=== PATIENT | female | born 1955 | race Caucasian/White ===

== ENCOUNTER 2019-01-01 17:04 | Inpatient (IN) | payer MEDICAID ==
[~2019-01-01] VITALS: Ht 160 cm; Wt 59.6 kg
[2019-01-01] MEDS ORDERED: SODIUM CHLORIDE 0.9% 1,000 ML IV ONE (18:43)
[2019-01-01] MEDS ORDERED: MORPHINE SULFATE 4 MG/ML SYR/VIAL IV ONE (18:45)
[2019-01-01] MEDS ORDERED: ONDANSETRON HCL 4 MG/2 ML VIAL IV ONE (18:45)
[2019-01-01 19:35] LABS: Basophils # (auto) 0 uL; Eosinophils # (auto) 0.3 uL; Eosinophils % (auto) 3.9 % (0.0-7.0); Lymphocytes # (auto) 2.1 uL; Monocytes # (auto) 0.7 uL
[2019-01-01 19:37] LABS: Basophils % (auto) 0.2 % (0.0-2.0); Hematocrit 43.2 % (36.0-46.0); Hemoglobin 14.8 g/dL (12.2-16.2); Lymphocytes % (auto) 31.7 % (10.0-50.0); Mean Corpuscular Hgb Conc. 34.4 g/dL (32.0-36.0); Mean Corpuscular Volume 98.9 fL (80.0-100.0); Monocytes % (auto) 9.9 % (0.0-12.0); Neutrophils # (auto) 3.6 uL; Neutrophils % (auto) 54.3 % (37.0-80.0); Nucleated Red Blood Cells % 0.1 %; Platelet Count (auto) 201 10^3/uL (140-450); Red Blood Cells 4.36 10^6/uL (4.0-5.20); Red Cell Distribution Width 14.6 % (11.8-14.3); White Blood Cell 6.7 10^3/uL (4.4-10.8)
[2019-01-01] MEDS ORDERED: PIPERACILLIN-TAZOB 3.375GM 100 ML IV ONE (19:45)
[2019-01-01 19:53] LABS: INR < 0.93 (0.9-1.15); Partial Thromboplastin Time 27.1 sec (23.64-32.05)
[2019-01-01 19:54] LABS: Alanine Aminotransferase 29 U/L (13-56); Albumin 4.3 g/dL (3.4-5.0); Amylase 76 U/L (25-115); Anion Gap 7 (5-15); Aspartate Aminotransferase 25 U/L (15-37); BUN/Creatinine Ratio 11.5; Blood Urea Nitrogen 14 mg/dL (7-18); Carbon Dioxide 26 mmol/L (21-32); Chloride 107 mmol/L (98-107); GFR African American 58 mL/min; GFR Non-African American 48 mL/min; Glucose 89 mg/dL (74-106); Lipase 137 U/L (73-393); Sodium 140 mmol/L (136-145)
[2019-01-01 19:59] LABS: Alkaline Phosphatase 76 U/L (45-117); Bilirubin, Total 0.4 mg/dL (0.2-1.0); Total Protein 7.4 g/dL (6.4-8.2)
[2019-01-01 20:09] LABS: Urine WBC None Seen /hpf (0 - 5)
[2019-01-01 20:30] LABS: Urine Bacteria NONE SEEN /hpf (None Seen); Urine Blood Negative /uL (Negative); Urine Specific Gravity 1.011 (1.001-1.035)
[2019-01-01] MEDS ORDERED: ACETAMINOPHEN 325 MG TAB PO PRN (21:15)
[2019-01-01] MEDS: metroNIDAZOLE 500MG/100ML 100 ML IV SCH (21:48)
[2019-01-01] MEDS: FAMOTIDINE 20 MG TAB PO SCH (22:05)
[2019-01-01] MEDS ORDERED: cloNIDine HCL 0.1 MG TAB PO PRN (22:45)
[2019-01-01 22:55] VITALS: BP 154/68
--- NOTE | 2019-01-01 22:55 | NUR ---
PATIENT ARRIVED TO UNIT VIA WHEELCHAIR. HER WAS BEDSIDE. SHE IS A0X4. SHE IS SATTING ABOVE 92% ON ROOM AIR BUT ASKED FOR OXYGEN BECAUSE SHE FEELS SHORT OF BREATH. SHE WAS PLACED ON 2L NC. SHE WAS ABLE TO AMBULATE FROM THE WHEELCHAIR TO THE BED WITHOUT ASSISTANCE. SHE COMPLAINS OF ABDOMINAL PAIN GLOBALLY BUT THE RIGHT LOWER QUADRANT PAIN RADIATED TO THE BACK. SIDE RAILS UP X2. BED IS LOCKED IN LOWEST POSITION. CALL LIGHT IS WITHIN REACH. WILL CONTINUE TO MONITOR.
[2019-01-01] MEDS: HYDROcodone-ACET 5/325MG TAB PO PRN (23:34)
[2019-01-01] MEDS ORDERED: SPIR25TA8 PO (23:43)
[2019-01-01] MEDS ORDERED: METO25TA5 PO (23:43)
[2019-01-01] MEDS ORDERED: LOSA-69 PO (23:43)
[2019-01-01] MEDS ORDERED: ATOR80TA PO (23:43)
[2019-01-01] MEDS ORDERED: ASPI-404 PO (23:43)
[2019-01-01] MEDS ORDERED: PRAS10TA6 PO (23:43)
[2019-01-02 05:00] VITALS: BP 156/95
[2019-01-02 06:10] LABS: Basophils # (auto) 0.1 uL; Basophils % (auto) 1.9 % (0.0-2.0); Eosinophils # (auto) 0.3 uL; Eosinophils % (auto) 4.7 % (0.0-7.0); Hematocrit 39.8 % (36.0-46.0); Hemoglobin 13.9 g/dL (12.2-16.2); Lymphocytes # (auto) 2.2 uL; Lymphocytes % (auto) 39.6 % (10.0-50.0); Mean Corpuscular Hemoglobin 34.6 pg (28.0-32.0); Mean Corpuscular Hgb Conc. 34.8 g/dL (32.0-36.0); Mean Corpuscular Volume 99.2 fL (80.0-100.0); Monocytes # (auto) 0.6 uL; Monocytes % (auto) 10.3 % (0.0-12.0); Neutrophils # (auto) 2.4 uL; Neutrophils % (auto) 43.5 % (37.0-80.0); Nucleated Red Blood Cells % 0.1 %; Platelet Count (auto) 164 10^3/uL (140-450); Red Blood Cells 4.01 10^6/uL (4.0-5.20); Red Cell Distribution Width 14.6 % (11.8-14.3); White Blood Cell 5.6 10^3/uL (4.4-10.8)
[2019-01-02] MEDS: metroNIDAZOLE 500MG/100ML 100 ML IV SCH ×3 (06:20→21:19)
[2019-01-02 06:49] LABS: Anion Gap 4 (5-15); Blood Urea Nitrogen 12 mg/dL (7-18); Carbon Dioxide 27 mmol/L (21-32); Chloride 109 mmol/L (98-107); Glucose 82 mg/dL (74-106); Sodium 140 mmol/L (136-145)
[2019-01-02 06:50] LABS: BUN/Creatinine Ratio 10.3; Calcium 8.1 mg/dL (8.5-10.1); GFR African American 61 mL/min; GFR Non-African American 50 mL/min
[2019-01-02 09:00] VITALS: BP 137/84
--- NOTE | 2019-01-02 09:00 | NUR ---
off unit to smoke, accompanied by family. signed AMA form.
[2019-01-02] MEDS: cefTRIAXone 1GM/50ML D5W 50 ML IV SCH (09:41)
[2019-01-02] MEDS: SPIRONOLACTONE 25 MG TAB PO SCH (09:41)
[2019-01-02] MEDS: PRASUGREL HCL 10 MG TAB PO SCH (09:42)
[2019-01-02] MEDS: LOSARTAN POTASSIUM 50 MG TAB PO SCH (09:43)
[2019-01-02] MEDS: FAMOTIDINE 20 MG TAB PO SCH (09:43)
--- NOTE | 2019-01-02 12:05 | NUR ---
OFF UNIT TO SMOKE
--- NOTE | 2019-01-02 12:30 | NUR ---
BACK TO ROOM
[2019-01-02 13:00] VITALS: BP 147/73
[2019-01-02] MEDS: HYDROcodone-ACET 5/325MG TAB PO PRN ×2 (15:03→21:56)
[2019-01-02] MEDS: PANTOPRAZOLE 40 MG TAB PO SCH ×2 (16:49→21:19)
[2019-01-02 17:00] VITALS: BP 153/93
[2019-01-02] MEDS: ONDANSETRON HCL 4 MG/2 ML VIAL IV PRN (18:18)
--- NOTE | 2019-01-02 18:25 | NUR ---
UNABLE TO TOLERATE DINNER, HAD NAUSEA AND SMALL EMESIS AFTER FEW BITES. ZOFRAN GIVEN, INSTRUCTED NOT TO EAT ANYMORE TO GIVE STOMACH A REST. CONSENT SIGNED FOR PLANNED PROCEDURE TOMORROW.
--- NOTE | 2019-01-02 20:00 | NUR ---
Opening Shift Note Assumed care of patient, awake and alert. No S/S of distress/SOB or pain. Instructed on POC and to call for assist PRN, will continue to monitor for changes Q1hr and PRN.
[2019-01-02] MEDS: ATORVASTATIN 20 MG TAB PO SCH (21:19)
[2019-01-02] MEDS: TEMAZEPAM 15 MG CAP PO PRN (21:55)
[2019-01-02 22:00] VITALS: BP 158/101
[2019-01-02 23:00] VITALS: BP 144/95
[2019-01-03 05:00] VITALS: BP 122/73
[2019-01-03] MEDS: metroNIDAZOLE 500MG/100ML 100 ML IV SCH ×3 (05:40→21:15)
[2019-01-03] MEDS: cefTRIAXone 1GM/50ML D5W 50 ML IV SCH (08:35)
[2019-01-03 09:00] VITALS: BP 152/74
[2019-01-03] MEDS: PANTOPRAZOLE 40 MG TAB PO SCH ×2 (10:00→21:15)
[2019-01-03] MEDS: LOSARTAN POTASSIUM 50 MG TAB PO SCH (10:00)
[2019-01-03] MEDS: PRASUGREL HCL 10 MG TAB PO SCH (10:00)
[2019-01-03] MEDS: SPIRONOLACTONE 25 MG TAB PO SCH (10:00)
--- NOTE | 2019-01-03 10:46 | NUR ---
PATIENT TRANSPORTED DOWN TO EGD PROCEDURE. NO S/S OF DISTRESS, SOB, OR PAIN AT TIME OF DEPARTURE.
[2019-01-03] MEDS ORDERED: LIDOCAINE VISCOUS 2% 15ML UD ONE (10:57)
[2019-01-03] MEDS ORDERED: MIDAZOLAM HCL 5 MG/ML-1ML VIAL ONE (10:57)
[2019-01-03] MEDS ORDERED: SODIUM CHLORIDE LOCK 10 ML ONE (10:57)
[2019-01-03] MEDS ORDERED: diphenhdrAMINE HCL 50 MG/1 ML VL ONE (10:58)
[2019-01-03] MEDS ORDERED: fentaNYL CITRATE 100 MCG/2 ML VL ONE (10:58)
[2019-01-03 13:00] VITALS: BP 150/99
--- NOTE | 2019-01-03 13:13 | NUR ---
MONITOR FOR S/S OF BLEEDING. PATIENT BACK FROM EGD. PATIENT EDUCATED ON S/S OF BLEEDING. PATIENT EDUCATED TO TELL RN FOR ANY NAUSEA, VOMITING, OR PAIN. VITAL SIGNS AND LABS MONITORED CLOSELY. PATIENT ON CLEAR LIQUID DIET. EDUCATED TO AVOID RED/DARK RED COLORED LIQUIDS.
[2019-01-03 14:52] LABS: Basophils # (auto) 0.1 uL; Basophils % (auto) 1.1 % (0.0-2.0); Eosinophils # (auto) 0.2 uL; Eosinophils % (auto) 3.2 % (0.0-7.0); Hematocrit 39.4 % (36.0-46.0); Hemoglobin 13.3 g/dL (12.2-16.2); Lymphocytes # (auto) 1.8 uL; Lymphocytes % (auto) 30.3 % (10.0-50.0); Mean Corpuscular Hemoglobin 33.4 pg (28.0-32.0); Mean Corpuscular Hgb Conc. 33.7 g/dL (32.0-36.0); Mean Corpuscular Volume 99.4 fL (80.0-100.0); Monocytes # (auto) 0.5 uL; Monocytes % (auto) 9.4 % (0.0-12.0); Neutrophils # (auto) 3.3 uL; Platelet Count (auto) 172 10^3/uL (140-450); Red Blood Cells 3.97 10^6/uL (4.0-5.20); Red Cell Distribution Width 14.5 % (11.8-14.3); White Blood Cell 5.8 10^3/uL (4.4-10.8)
[2019-01-03 15:27] LABS: BUN/Creatinine Ratio 9.5; Calcium 8.5 mg/dL (8.5-10.1); Potassium 3.8 mmol/L (3.5-5.1)
[2019-01-03] MEDS: SUCRALFATE 1 GM/10 ML ORAL SUSP PO SCH ×2 (16:48→21:15)
[2019-01-03 17:00] VITALS: BP 148/84
[2019-01-03 18:00] LABS: Hematocrit 39.1 % (36.0-46.0); Hemoglobin 13.3 g/dL (12.2-16.2)
--- NOTE | 2019-01-03 18:41 | NUR ---
PATIENT AMBULATING WITH . NO C/O OF PAIN, NAUSEA, OR VOMITING. NO S/S OF BLEEDING, LABS AND VS STABLE.
[2019-01-03] MEDS: HYDROcodone-ACET 5/325MG TAB PO PRN (19:41)
--- NOTE | 2019-01-03 20:00 | NUR ---
Opening Shift Note Assumed care of patient, awake and alert. No S/S of distress/SOB or pain. Instructed on POC and to call for assist PRN, will continue to monitor for changes Q1hr and PRN. Patient being monitored and educated for signs of bleeding. Patient verbalized understanding.
[2019-01-03] MEDS: ATORVASTATIN 20 MG TAB PO SCH (21:15)
[2019-01-03] MEDS: TEMAZEPAM 15 MG CAP PO PRN (21:20)
[2019-01-03 21:46] VITALS: BP 149/96
[2019-01-04] MEDS: ONDANSETRON HCL 4 MG/2 ML VIAL IV PRN (03:39)
[2019-01-04 05:31] LABS: Basophils # (auto) 0.1 uL; Basophils % (auto) 2.2 % (0.0-2.0); Eosinophils # (auto) 0.2 uL; Eosinophils % (auto) 4.6 % (0.0-7.0); Hematocrit 39.9 % (36.0-46.0); Hemoglobin 13.9 g/dL (12.2-16.2); Lymphocytes # (auto) 1.4 uL; Lymphocytes % (auto) 28.4 % (10.0-50.0); Mean Corpuscular Hemoglobin 34.5 pg (28.0-32.0); Mean Corpuscular Hgb Conc. 34.8 g/dL (32.0-36.0); Monocytes # (auto) 0.4 uL; Neutrophils # (auto) 2.8 uL; Neutrophils % (auto) 56.8 % (37.0-80.0); Nucleated Red Blood Cells % 0.1 %; Platelet Count (auto) 178 10^3/uL (140-450); Red Blood Cells 4.03 10^6/uL (4.0-5.20); Red Cell Distribution Width 14.2 % (11.8-14.3)
[2019-01-04] MEDS: metroNIDAZOLE 500MG/100ML 100 ML IV SCH ×2 (05:33→13:41)
[2019-01-04] MEDS: SUCRALFATE 1 GM/10 ML ORAL SUSP PO SCH ×2 (06:30→09:58)
--- NOTE | 2019-01-04 08:00 | NUR ---
Morning note Assumed care of patient, resting in bed awake and alert. Respiration even and unlabored. No S/S of distress. Instructed on POC and to call for assist PRN, will continue to monitor for changes Q1hr and PRN.
[2019-01-04 09:00] VITALS: BP 154/96
[2019-01-04] MEDS: cefTRIAXone 1GM/50ML D5W 50 ML IV SCH (09:33)
[2019-01-04] MEDS: PANTOPRAZOLE 40 MG TAB PO SCH (09:36)
[2019-01-04] MEDS: HYDROcodone-ACET 5/325MG TAB PO PRN ×2 (09:37→14:19)
[2019-01-04] MEDS: LOSARTAN POTASSIUM 50 MG TAB PO SCH (09:52)
[2019-01-04] MEDS: SPIRONOLACTONE 25 MG TAB PO SCH (09:58)
[2019-01-04] MEDS ORDERED: CIPR-173 PO (10:44)
[2019-01-04] MEDS ORDERED: PANT40TA2 PO (10:44)
[2019-01-04] MEDS ORDERED: METR500T PO (10:44)
[2019-01-04 11:53] VITALS: BP 154/96
[2019-01-04 13:00] VITALS: BP 152/88
--- NOTE | 2019-01-04 16:27 | NUR ---
Discharge instructions given as ordered. Encourage to follow up with PMD as instructed. All questions and concerns addressed. Patient verbalized understanding. Medication reconciliation form completed and copy given to patient. No home medications held in Pharmacy and none returned to patient, and no needed vaccines given. IV removed with catheter intact, pressure dressing applied. Telemetry unit returned to ICU. Patient taken to vehicle via wheelchair with all personal belongings, accompanied by staff and family member. No distress noted at time of departure.
== END 2019-01-04 16:25 | disposition home or self-care (01) | DRG 241 ==
LOC: ER 17:04 → OVERFLOW 17:05 → WEST WING 22:48 → TELE-WESTW 01-04 11:05
PROVIDERS: ADMIT Nurse Practitioner; ATTEND Internal Medicine Nephrology
PROC: 0DB68ZX Excision of Stomach, Via Natural or Artificial Opening Endoscopic, Diagnostic (ICD-10-PCS; principal; 2019-01-03 11:39)
DX: K29.90 Gastroduodenitis, unspecified, without bleeding (principal); E44.0 Moderate protein-calorie malnutrition; N18.3 Chronic kidney disease, stage 3 (moderate); J98.4 Other disorders of lung; M41.86 Other forms of scoliosis, lumbar region; A04.9 Bacterial intestinal infection, unspecified; K57.32 Diverticulitis of large intestine without perforation or abscess without bleeding; I25.10 Atherosclerotic heart disease of native coronary artery without angina pectoris; K29.70 Gastritis, unspecified, without bleeding; K29.80 Duodenitis without bleeding; I70.0 Atherosclerosis of aorta; R00.1 Bradycardia, unspecified; E78.00 Pure hypercholesterolemia, unspecified; I12.9 Hypertensive chronic kidney disease with stage 1 through stage 4 chronic kidney disease, or unspecified chronic kidney disease; I34.0 Nonrheumatic mitral (valve) insufficiency; M46.96 Unspecified inflammatory spondylopathy, lumbar region; M47.896 Other spondylosis, lumbar region; J44.9 Chronic obstructive pulmonary disease, unspecified; Z90.710 Acquired absence of both cervix and uterus; Z88.0 Allergy status to penicillin; Z88.6 Allergy status to analgesic agent; Z88.8 Allergy status to other drugs, medicaments and biological substances; Z68.23 Body mass index [BMI] 23.0-23.9, adult; Z95.5 Presence of coronary angioplasty implant and graft; Z79.899 Other long term (current) drug therapy
CPT/HCPCS: 36415; 43239; 71045; 74176; 80048; 80053; 81001; 82150; 83605; 83690; 84443; 84484; 85014; 85018; 85025; 85610; 85730; 86850; 86900; 86901; 87040; 93005; 96365; 96367; 96375; G0378; J0696; J2250; J2405; J2543; J3490

== ENCOUNTER → 2019-02-07 | Outpatient (CLI) | payer MEDICARE, MEDICAID ==
[~2019-02-07] MED LIST: ASPI-404 PO; ATOR80TA PO; CIPR-173 PO; LOSA-69 PO; METO25TA5 PO; METR500T PO; PANT40TA2 PO; SPIR25TA8 PO
[2019-02-07 15:54] LABS: Basophils # (auto) 0 uL; Basophils % (auto) 0.6 % (0.0-2.0); Eosinophils # (auto) 0.4 uL; Eosinophils % (auto) 6.5 % (0.0-7.0); Hematocrit 37.2 % (36.0-46.0); Hemoglobin 12.9 g/dL (12.2-16.2); Lymphocytes # (auto) 1.9 uL; Lymphocytes % (auto) 31.1 % (10.0-50.0); Mean Corpuscular Hemoglobin 34.4 pg (28.0-32.0); Mean Corpuscular Hgb Conc. 34.7 g/dL (32.0-36.0); Mean Corpuscular Volume 99.1 fL (80.0-100.0); Monocytes # (auto) 0.6 uL; Monocytes % (auto) 10.3 % (0.0-12.0); Neutrophils # (auto) 3.1 uL; Neutrophils % (auto) 51.5 % (37.0-80.0); Nucleated Red Blood Cells % 0.1 %; Platelet Count (auto) 217 10^3/uL (140-450); Red Blood Cells 3.75 10^6/uL (4.0-5.20); Red Cell Distribution Width 13.9 % (11.8-14.3)
[2019-02-07 16:15] LABS: Albumin 3.7 g/dL (3.4-5.0); BUN/Creatinine Ratio 8.4; Calcium 8.8 mg/dL (8.5-10.1); Potassium 4.4 mmol/L (3.5-5.1)
[2019-02-07 16:17] LABS: Bilirubin, Total 0.3 mg/dL (0.2-1.0); Total Protein 7.1 g/dL (6.4-8.2)
== END | disposition home or self-care (01) ==
LOC: LAB 15:30
PROVIDERS: ATTEND Internal Medicine Nephrology
DX: K92.1 Melena (principal); R19.7 Diarrhea, unspecified; D37.4 Neoplasm of uncertain behavior of colon
CPT/HCPCS: 36415; 80053; 85025

== ENCOUNTER → 2019-04-19 | Outpatient (CLI) | payer MEDICARE, MEDICAID | END | disposition home or self-care (01) | LOC: XY 09:12 | PROVIDERS: ATTEND Internal Medicine Nephrology | DX: I73.9 Peripheral vascular disease, unspecified (principal); I77.1 Stricture of artery | CPT/HCPCS: 93925 ==

== ENCOUNTER → 2019-04-19 | Outpatient (CLI) | payer OTHER ==
[2019-04-19 11:37] LABS: Urine Bacteria NONE SEEN /hpf (None Seen); Urine Blood Negative /uL (Negative); Urine Specific Gravity 1.009 (1.001-1.035); Urine WBC <1 /hpf (0 - 5)
[2019-04-19 11:40] LABS: Albumin 4.5 g/dL (3.4-5.0); BUN/Creatinine Ratio 17.1; Calcium 9.7 mg/dL (8.5-10.1); Potassium 4.4 mmol/L (3.5-5.1)
[2019-04-19 11:41] LABS: Basophils # (auto) 0.1 uL; Basophils % (auto) 1.7 % (0.0-2.0); Eosinophils # (auto) 0.3 uL; Eosinophils % (auto) 4.9 % (0.0-7.0); Hematocrit 44.6 % (36.0-46.0); Hemoglobin 15.2 g/dL (12.2-16.2); Lymphocytes # (auto) 1.7 uL; Lymphocytes % (auto) 31.4 % (10.0-50.0); Mean Corpuscular Hemoglobin 33.3 pg (28.0-32.0); Mean Corpuscular Volume 97.8 fL (80.0-100.0); Monocytes # (auto) 0.5 uL; Monocytes % (auto) 9.8 % (0.0-12.0); Neutrophils # (auto) 2.7 uL; Neutrophils % (auto) 52.2 % (37.0-80.0); Nucleated Red Blood Cells % 0.1 %; Platelet Count (auto) 197 10^3/uL (140-450); Red Blood Cells 4.56 10^6/uL (4.0-5.20); Red Cell Distribution Width 13.9 % (11.8-14.3); White Blood Cell 5.3 10^3/uL (4.4-10.8)
[2019-04-19 11:43] LABS: Protein, Urine 7.8 mg/dL (0.0-11.9)
[2019-04-19 11:44] LABS: Bilirubin, Total 0.6 mg/dL (0.2-1.0); Total Protein 7.9 g/dL (6.4-8.2)
== END | disposition home or self-care (01) ==
LOC: LAB 10:54
PROVIDERS: ATTEND Internal Medicine Nephrology
DX: I12.9 Hypertensive chronic kidney disease with stage 1 through stage 4 chronic kidney disease, or unspecified chronic kidney disease (principal); N18.3 Chronic kidney disease, stage 3 (moderate); Z79.899 Other long term (current) drug therapy
CPT/HCPCS: 36415; 80053; 81001; 82570; 83036; 84156; 84439; 84443; 85025; 85652

== ENCOUNTER 2019-04-27 13:01 | Emergency (ER) | payer OTHER, MEDICAID ==
[~2019-04-27] VITALS: Ht 160 cm; Wt 51.7 kg
[2019-04-27 13:12] VITALS: BP 143/80
[2019-04-27] MEDS ORDERED: ONDANSETRON HCL 4 MG/2 ML VIAL IV ONE (14:15)
[2019-04-27 15:30] LABS: Basophils # (auto) 0.1 uL; Basophils % (auto) 0.9 % (0.0-2.0); Eosinophils # (auto) 0 uL; Eosinophils % (auto) 0.6 % (0.0-7.0); Hemoglobin 14.6 g/dL (12.2-16.2); Lymphocytes # (auto) 1.1 uL; Lymphocytes % (auto) 14.5 % (10.0-50.0); Mean Corpuscular Hemoglobin 33.4 pg (28.0-32.0); Mean Corpuscular Hgb Conc. 34.8 g/dL (32.0-36.0); Mean Corpuscular Volume 96.1 fL (80.0-100.0); Monocytes # (auto) 0.6 uL; Monocytes % (auto) 8.1 % (0.0-12.0); Neutrophils # (auto) 5.9 uL; Neutrophils % (auto) 75.9 % (37.0-80.0); Platelet Count (auto) 210 10^3/uL (140-450); Red Blood Cells 4.37 10^6/uL (4.0-5.20); Red Cell Distribution Width 14.1 % (11.8-14.3); White Blood Cell 7.8 10^3/uL (4.4-10.8)
[2019-04-27 15:46] LABS: Albumin 4.3 g/dL (3.4-5.0); Calcium 9.8 mg/dL (8.5-10.1); Potassium 4.4 mmol/L (3.5-5.1)
[2019-04-27 15:53] LABS: Bilirubin, Total 0.6 mg/dL (0.2-1.0)
== END 2019-04-27 18:48 | disposition left against medical advice (07) ==
LOC: ER 13:13
DX: I24.9 Acute ischemic heart disease, unspecified (principal); R53.1 Weakness; I12.9 Hypertensive chronic kidney disease with stage 1 through stage 4 chronic kidney disease, or unspecified chronic kidney disease; N18.9 Chronic kidney disease, unspecified; J44.9 Chronic obstructive pulmonary disease, unspecified; E78.5 Hyperlipidemia, unspecified; F17.210 Nicotine dependence, cigarettes, uncomplicated; I25.2 Old myocardial infarction; Z90.710 Acquired absence of both cervix and uterus; Z98.61 Coronary angioplasty status; Z88.0 Allergy status to penicillin; Z88.6 Allergy status to analgesic agent; Z79.899 Other long term (current) drug therapy
CPT/HCPCS: 36415; 71046; 80053; 83735; 84484; 85025; 93005; 96374; 99285; J2405

== ENCOUNTER → 2019-07-11 | Outpatient (CLI) | payer MEDICARE, MEDICAID | END | disposition home or self-care (01) | LOC: XYW 09:54 | PROVIDERS: ATTEND Internal Medicine | DX: I08.1 Rheumatic disorders of both mitral and tricuspid valves (principal); R06.02 Shortness of breath | CPT/HCPCS: 93306 ==

== ENCOUNTER 2019-11-14 07:29 | Day surgery (SDC) | payer MEDICARE, MEDICAID ==
[2019-11-09 10:08] LABS: Basophils # (auto) 0.2 10 ^3/uL (0-0.2); Basophils % (auto) 2.7 % (0.0-2.0); Eosinophils # (auto) 0.4 10 ^3/uL (0-0.8); Eosinophils % (auto) 6.5 % (0.0-7.0); Hemoglobin 14.1 g/dL (12.2-16.2); Lymphocytes # (auto) 2.4 10 ^3/uL (0.4-5.4); Lymphocytes % (auto) 40.3 % (10.0-50.0); Mean Corpuscular Hemoglobin 33.4 pg (28.0-32.0); Mean Corpuscular Hgb Conc. 34.4 g/dL (32.0-36.0); Mean Corpuscular Volume 97.3 fL (80.0-100.0); Monocytes # (auto) 0.6 10 ^3/uL (0-1.3); Monocytes % (auto) 10.7 % (0.0-12.0); Neutrophils # (auto) 2.4 10 ^3/uL (1.6-8.6); Neutrophils % (auto) 39.8 % (37.0-80.0); Platelet Count (auto) 258 10^3/uL (140-450); Red Blood Cells 4.22 10^6/uL (4.0-5.20); Red Cell Distribution Width 13.9 % (11.8-14.3)
[2019-11-09 10:17] LABS: Albumin 4.3 g/dL (3.4-5.0); Calcium 9.3 mg/dL (8.5-10.1); Potassium 4.4 mmol/L (3.5-5.1)
[2019-11-09 10:19] LABS: INR 0.91 (0.9-1.15); Partial Thromboplastin Time 27.9 sec (23.0-31.2)
[2019-11-09 10:21] LABS: BUN/Creatinine Ratio 9.5; Bilirubin, Total 0.5 mg/dL (0.2-1.0); Total Protein 7.5 g/dL (6.4-8.2)
[~2019-11-14 07:29] MED LIST changes: -ASPI-404 PO; +ASPI-543 PO; +ATOR40TA52 PO; -ATOR80TA PO; -CIPR-173 PO; +HYDR-3682 PO; -LOSA-69 PO; -METR500T PO; +SACU1TAB PO; -SPIR25TA8 PO
[2019-11-14] MEDS ORDERED: LIDOCAINE 2%HCL (LOCAL ANESTH.) INJ 20ML MDV ONE (08:23)
[2019-11-14] MEDS ORDERED: IODIXANOL 320MG/ML 100ML BTL IV ONE (08:24)
[2019-11-14] MEDS ORDERED: MIDAZOLAM HCL 1MG/1ML-2 ML VIAL ONE (08:40)
[2019-11-14] MEDS ORDERED: ANGIOMAX 250 MG VIAL IV ONE (08:40)
[2019-11-14] MEDS ORDERED: SODIUM CHL 0.9% 0 ML ONE (08:40)
[2019-11-14] MEDS ORDERED: fentaNYL CITRATE 100 MCG/2 ML VL ONE (08:40)
[2019-11-14] MEDS ORDERED: PANT40T PO (10:46)
== END 2019-11-14 13:40 | disposition home or self-care (01) ==
LOC: CATH 07:29
PROVIDERS: ATTEND Internal Medicine
DX: I70.211 Atherosclerosis of native arteries of extremities with intermittent claudication, right leg (principal); E78.5 Hyperlipidemia, unspecified; I25.2 Old myocardial infarction; I13.0 Hypertensive heart and chronic kidney disease with heart failure and stage 1 through stage 4 chronic kidney disease, or unspecified chronic kidney disease; N18.9 Chronic kidney disease, unspecified; Z87.891 Personal history of nicotine dependence; Z79.82 Long term (current) use of aspirin; Z79.899 Other long term (current) drug therapy; Z98.890 Other specified postprocedural states; Z86.73 Personal history of transient ischemic attack (TIA), and cerebral infarction without residual deficits; Z88.0 Allergy status to penicillin; Z88.1 Allergy status to other antibiotic agents; Z20.828 Contact with and (suspected) exposure to other viral communicable diseases
CPT/HCPCS: 36247; 36415; 75716; 80053; 85025; 85610; 85730; 93005; C1760; C1769; C1887; C1894; J1644; J2250; J3010; Q9967; U0003; 99152; 99153